=== PATIENT | female | born 1995 | race Caucasian/White ===

== ENCOUNTER 2016-08-25 19:34 | Emergency (ER) | payer OTHER ==
[~2016-08-25] VITALS: Ht 160 cm; Wt 62.9 kg
[~2016-08-25 19:34] MED LIST: ENPRESSE1 EACH PO; NAPROSYN500 MG PO; NAPROXEN500 MG PO
[2016-08-25 20:31] LABS: HEMATOCRIT 39.3 % (36.0-46.0); MCH 29.1 PG (29.0-34.0); MCHC 33.8 G/DL (30.0-36.0); MEAN PLAT.VOLUME 8.6 uM^3 (9.5-12.4); PLATELET COUNT 320 K/uL (156-360); RBC DIS.WIDTH-CV 12.2 % (11.8-14.6); RBC DIS.WIDTH-SD 38.5 % (39-53); RED BLOOD COUNT 4.57 M/uL (3.80-5.20); WHITE BLOOD COUNT 9.9 K/uL (4.1-10.2)
[2016-08-25 20:40] LABS: CHLORIDE 106 mEq/L (99-109); POTASSIUM 3.8 mEq/L (3.7-5.4); SODIUM 139 mEq/L (136-147)
[2016-08-25 20:41] LABS: GLUCOSE 94 mg/dL (70-99)
[2016-08-25 20:43] LABS: ANION GAP 11 MEQ/L (2-14)
[2016-08-25 20:45] LABS: GFR ESTIMATE (CALCULATED) > 59 mL/min/
[2016-08-25 20:46] LABS: UREA NITROGEN (BUN) 9 mg/dL (9-23)
[2016-08-25 20:55] LABS: TROP-I INTERPRETATION NEGATIVE; TROPONIN-I < 0.01 ng/mL (0.0-0.30)
[2016-08-25 21:29] LABS: D-DIMER ELISA 0.21 mg/L FEU (< 0.57)
[2016-08-25 22:25] VITALS: BP 131/65
== END 2016-08-25 22:31 | disposition home or self-care (01) ==
LOC: EXP 19:34 → EME 19:34 → EXP 22:31
DX: R07.9 Chest pain, unspecified (principal); R06.02 Shortness of breath; R55 Syncope and collapse; Z79.3 Long term (current) use of hormonal contraceptives
CPT/HCPCS: 71020; 80048; 84484; 85027; 85379; 93005; 99281; 99284

== ENCOUNTER 2016-11-11 10:46 | Emergency (ER) | payer OTHER ==
[~2016-11-11] VITALS: Ht 160 cm; Wt 60.1 kg
[2016-11-11 13:43] LABS: D-DIMER ELISA 0.24 mg/L FEU (< 0.57)
[2016-11-11 13:59] LABS: TROP-I INTERPRETATION NEGATIVE; TROPONIN-I < 0.01 ng/mL (0.0-0.30)
[2016-11-11 14:51] VITALS: BP 110/64
== END 2016-11-11 15:06 | disposition home or self-care (01) ==
LOC: EME 10:46
PROVIDERS: Emergency Medicine
DX: R07.9 Chest pain, unspecified (principal)
CPT/HCPCS: 71020; 84484; 85379; 93005; 99281; 99284

== ENCOUNTER 2017-06-30 19:32 | Emergency (ER) | payer OTHER ==
[~2017-06-30] VITALS: Ht 160 cm; Wt 60.0 kg
[2017-06-30 20:12] LABS: HEMOGLOBIN 15.2 G/DL (11.9-15.5); MCH 29.7 PG (29.0-34.0); MCHC 33.8 G/DL (30.0-36.0); MCV 87.9 FL (83-99); PLATELET COUNT 169 K/uL (156-360); RBC DIS.WIDTH-CV 12.5 % (11.8-14.6); RBC DIS.WIDTH-SD 40.8 % (39-53); RED BLOOD COUNT 5.12 M/uL (3.80-5.20); WHITE BLOOD COUNT 12.8 K/uL (4.1-10.2)
[2017-06-30 20:22] LABS: CHLORIDE 106 mEq/L (99-109); POTASSIUM 4.3 mEq/L (3.7-5.4); SODIUM 137 mEq/L (136-147)
[2017-06-30 20:24] LABS: GLUCOSE 79 mg/dL (70-99)
[2017-06-30 20:28] LABS: CREATININE 0.8 mg/dL (0.6-1.3); GFR ESTIMATE (CALCULATED) > 59 mL/min/
[2017-06-30 20:29] LABS: UREA NITROGEN (BUN) 15 mg/dL (9-23)
[2017-06-30 20:36] LABS: QUANTITATIVE HCG < 4.0 MIU/ML
[2017-06-30 21:09] LABS: APPEARANCE CLEAR ((CLEAR)); BILIRUBIN NEGATIVE; BLOOD SMALL; COLOR YELLOW ((YELLOW)); GLUCOSE (STRIP) NEGATIVE; KETONES NEGATIVE; LEUKOCYTES SMALL; NITRITE NEGATIVE; PROTEIN (STRIP) NEGATIVE; UROBILINOGEN 0.2 MG/DL (0.2-1.0)
[2017-06-30 21:25] LABS: BACTERIA RARE /HPF; EPITHELIAL CELLS RARE /HPF; MUCUS TRACE /LPF; RED BLOOD CELLS 0-5 /HPF (0-5); UCUL ADDED? NO; WHITE BLOOD CELLS 0-5 /HPF (0-5)
[2017-06-30 21:39] VITALS: BP 122/69
== END 2017-06-30 21:40 | disposition home or self-care (01) ==
LOC: EME 19:32
PROVIDERS: Nurse Practitioner Family
DX: R55 Syncope and collapse (principal); R42 Dizziness and giddiness; J45.909 Unspecified asthma, uncomplicated; Z82.49 Family history of ischemic heart disease and other diseases of the circulatory system
CPT/HCPCS: 71046; 80048; 81003; 84702; 85027; 93005; 99281; 99284

== ENCOUNTER 2017-11-24 15:55 | Emergency (ER) | payer OTHER ==
[~2017-11-24] VITALS: Ht 160 cm; Wt 61.6 kg
[2017-11-24 15:59] VITALS: BP 117/847
== END 2017-11-24 17:58 | disposition left against medical advice (07) ==
LOC: EME 15:55
DX: R07.9 Chest pain, unspecified (principal); Z53.21 Procedure and treatment not carried out due to patient leaving prior to being seen by health care provider
CPT/HCPCS: 93005